=== PATIENT | female | born 1965 | race Caucasian/White ===

== ENCOUNTER 2019-08-15 23:10 | Emergency (ER) | payer SELFPAY ==
--- NOTE | ~2019-08-15 | CT_ITS ---
EXAMINATION: CT brain wo con EXAM DATE: 08/15/2019 23:37 INDICATION: Right-sided hemiparesis and paresthesia. Irregular heartbeat. Right-sided lung cancer. TECHNIQUE: Spiral CT of the head was performed without contrast. Axial, coronal and sagittal images were reviewed. The dose-length product (DLP) for this examination was 605.33 mGy-cm. The exposure w as tailored according to patient size, and iterative reconstruction (ASIR) was used as additional dos e reduction technique. Comparison is made to prior examination from 06/13/2011. FINDINGS: Interval development of a left frontal lobe mass most likely metastatic lesion measuring 2. 8 x 2.1 cm, extensive associated vasogenic edema. There is some mass effect on the left lateral ventr icle with 6 mm of contralateral midline shift. There is there is also a left parietal lobe lesion measuring 1.5 cm. No evidence of acute infarction or intracranial hemorrhage. There are no extra-axial collections. The posterior fossa is unremarkable . Orbits and soft tissues are unremarkable. The visualized portions of the sinuses and mastoid air ce lls are well aerated. IMPRESSION: 1. Left frontal lobe and left parietal lobe masses most likely metastatic lesions. 2. Associated vasogenic edema and mild subfalcine herniation. 3. No acute intracranial findings. Reviewed, dictated and finalized at location . IMPRESSION: 1. Left frontal lobe and left parietal lobe masses most likely metastatic lesi ons. 2. Associated vasogenic edema and mild subfalcine herniation. 3. No acute intracranial findings.
[2019-08-15 23:10] VITALS: PULSE 125
[2019-08-15 23:15] VITALS: BP 121/83; PULSE 125; RESP 20; TEMP 37.3; O2SAT 99
--- NOTE | 2019-08-15 23:23 | ED.GENADULT ---
HPI - General Adult General Chief complaint: Suspected CVA Stated complaint: stroke History of Present Illness HPI narrative: Carmen is a 53F with a PMH hx of breast cancer, fast irregular heartbeat (unsure of the name) presented to the ED with concerns of a stroke. Symptoms started yesterday morning (unsure of exactly what time) but best guess is about 29 hours. She has had weakness in her right arm, right leg, and has had trouble finding her words. She has reportedly had trouble finding her words for a week. Related Data Home Medications Medication Instructions Recorded Confirmed alprazolam [Xanax] 0.5 mg PO BID PRN 08/15/19 08/15/19 buspirone 30 mg PO DAILY 08/15/19 08/15/19 metoprolol tartrate 50 mg PO DAILY 08/15/19 08/15/19 paroxetine HCl [Paxil] 40 mg PO QAM 08/15/19 08/15/19 trazodone 100 mg PO HS PRN 08/15/19 08/15/19 Allergies Allergy/AdvReac Type Severity Reaction Status Date / Time No Known Allergies Allergy Verified 08/15/19 23:46 Review of Systems Constitutional: Constitutional: Denies chills, Denies fever(s) and Reports weakness Eyes: Eyes: Reports no additional eye complaints ENT: Reports system reviewed and no additional complaints, except as documented Cardiovascular: Cardiovascular: Denies chest pain and Reports rapid heart rate Respiratory: Respiratory: Reports no additional respiratory complaints Comments: cough is no different than baseline Gastrointestinal: Gastrointestinal: Reports no additional gastrointestinal complaints Musculoskeletal: Musculoskeletal: Reports no additional musculoskeletal complaints Neurologic: Reports as per HPI Psychiatric: Psychiatric: Reports anxiety Endocrine: Endocrine: Reports no additional endocrine complaints Hematologic/Lymphatic: Hematologic/Lymphatic: Reports no additional hematologic/lymphatic complaints Allergic/Immunologic: Allergic/Immunologic: Reports no additional allergic/immunologic complaints [facility] Social History Social History Gender identity (if verbalized by the patient): Female Exam Const: General: no acute distress and alert Nutritional Appearance: well nourished Orientation/consciousness: patient oriented x3 Limitations: No altered mental status HENMT: Other: Normocephalic, atraumatic, no facial droop, moist oropharynx Eyes: Conjunctivae: conjunctivae normal Pupils: Equal, round and reactive pupils present Neck: Neck: normal visual inspection Resp: Effort & Inspection: normal respiratory effort Auscultation: clear to auscultation bilaterally Other: Absent breath sounds on the upper right Cardio: Rate: tachycardic Rhythm: regular rhythm Heart sounds: no murmurs GI: Inspection: non-distended GI Palp: Yes Soft to palpation and No Tenderness to palpation present (GI) Skin: General skin exam: normal color Rashes: no rashes Neuro: General: patient oriented x3 Other: alert orient x3, cranial nerves 2-12 intact as tested - could not see in the upper right quadrant of vision - 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 A CT was ordered. as well as labs. CT was completed and showed potential metastatic lesions, edema, and midline shift. After speaking with the patient she had originally wanted transfer for a higher level of care. While working on transfer to [place] she changed her mind. After her sister left the room she stated that she wanted to go home. She was aware that this could cause pain suffering and . She signed AMA paperwork. She did not stay for the EKG or to go over her lab work. She w
[2019-08-15 23:31] LABS: Basophils Absolute Auto 0.03 K/mm3 (0.00-0.10); Basophils Percent Auto 0.5 % (0.0-1.0); Eosinophils Absolute Auto 0.02 K/mm3 (0.02-0.50); Eosinophils Percent Auto 0.4 % (1.0-6.0); Hematocrit 40.7 % (35.0-49.0); Hemoglobin 13.7 g/dL (12.0-15.0); Immature Granulocyte Absolute 0.01 K/mm3 (0.00-0.00); Immature Granulocyte Percent A 0.2 % (0.0-0.0); Lymphocytes Absolute Auto 1.48 K/mm3 (1.10-4.50); Lymphocytes Percent Auto 27.1 % (18.0-42.0); Mean Corpuscular HGB Conc 33.7 g/dL (32.0-36.0); Mean Corpuscular Hemoglobin 31.5 pg (27.0-31.0); Mean Corpuscular Volume 93.6 fL (78.0-102.0); Monocytes Absolute Auto 0.54 K/mm3 (0.10-0.90); Monocytes Percent Auto 9.9 % (2.0-11.0); Neutrophils Absolute Auto 3.4 K/mm3 (1.7-7.2); Neutrophils Percent Auto 61.9 % (50.0-70.0); Platelet Count Result 261 K/mm3 (150-420); Red Blood Count 4.35 M/mm3 (4.20-5.40); Red Cell Distribution Width 11.8 % (11.6-14.4); White Blood Count 5.5 K/mm3 (4.8-10.8)
[2019-08-15 23:39] VITALS: BP 131/49; PULSE 118; RESP 20; O2SAT 96
[2019-08-15 23:44] LABS: Partial Thromboplastin Time 24.6 SEC (22.3-31.6); Prothrombin Time 10.2 Seconds (9.64-11.0)
[2019-08-15 23:47] LABS: Anion Gap 15.3 mmol/L (7-16); Blood Urea Nitrogen 21 mg/dL (7-18); Calcium 9.4 mg/dL (8.5-10.1); Carbon Dioxide 27 mmol/L (21-32); Chloride 105 mmol/L (98-108); Estimated CRCL calculation 66 ml/min; Estimated Glomerular Filt Rate > 60; Glucose 113 mg/dL (70-99); Osmolality Calculated 302 mOsm/kg (285-295); Potassium 3.3 mmol/L (3.5-5.1); Sodium 144 mmol/L (136-145)
[2019-08-15 23:50] LABS: Troponin I < 0.02 ng/mL (0.00-0.056)
--- NOTE | 2019-08-15 23:52 | PC.NURSE ---
Dr Subramanian at bedside talking with pt re: ct scan report.
[2019-08-15 23:54] VITALS: BP 131/49; PULSE 120; RESP 18; O2SAT 97
--- NOTE | 2019-08-16 00:01 | PC.NURSE ---
Report to JUAN Meyer. Care transferred at this time.
--- NOTE | 2019-08-16 00:06 | PC.NURSE ---
[facility] line called at this time for Dr Subramanian to speak with neurosurgery.
[2019-08-16] MEDS: LORAZEPAM INJ 2 MG/ML VIAL 0.25 MG IV PUSH (00:21)
== END 2019-08-16 00:20 | disposition left against medical advice (07) ==
PROVIDERS: Emergency Provider Family Medicine
DX: G93.9 Disorder of brain, unspecified (principal); G93.6 Cerebral edema
CPT/HCPCS: 36415; 70450; 80048; 82948; 84484; 85025; 85610; 85730; 96374; 99283; 99284; J2060

== ENCOUNTER 2019-09-04 15:41 | Emergency (ER) | payer MEDICAID, SELFPAY ==
--- NOTE | 2019-09-04 15:51 | ED.NEUROSD ---
HPI - Neuro Symptoms/Deficit General Chief Complaint: Altered Mental Status Stated Complaint: amb Time Seen by Provider: 09/04/19 15:55 Source: patient, EMS and RN notes reviewed Mode of arrival: EMS Limitations: no limitations History of Present Illness Onset (ago): minute(s) (30) Timing confirmed by: family member Location: speech and right arm History of same: Yes Severity: mild Quality: weak and improving Relieving factors: time Context: sudden onset On Anticoagulants: No Associated symptoms: denies other symptoms Treatments Prior to Arrival: none Related Data Home Medications Medication Instructions Recorded Confirmed alprazolam [Xanax] 0.5 mg PO BID PRN 08/15/19 08/15/19 buspirone 30 mg PO DAILY 08/15/19 08/15/19 metoprolol tartrate 50 mg PO DAILY 08/15/19 08/15/19 paroxetine HCl [Paxil] 40 mg PO QAM 08/15/19 08/15/19 trazodone 100 mg PO HS PRN 08/15/19 08/15/19 Allergies Allergy/AdvReac Type Severity Reaction Status Date / Time No Known Allergies Allergy Verified 08/15/19 23:46 Review of Systems Review of Systems: All systems reviewed & are unremarkable except as noted in HPI and below Cardiovascular: Cardiovascular: Denies chest pain and Denies rapid heart rate Respiratory: Respiratory: Reports no additional respiratory complaints Gastrointestinal: Gastrointestinal: Reports no additional gastrointestinal complaints Musculoskeletal: Musculoskeletal: Reports as per HPI Neurologic: Reports as per HPI Psychiatric: Psychiatric: Reports no additional psychiatric complaints Endocrine: Endocrine: Reports no additional endocrine complaints [facility] Past Medical History Medical History (Updated 09/04/19 @ 18:09 by Jorge Pastor MD) Depression History of completed stroke Lung cancer metastatic to brain Surgical History Surgical History (Updated 09/04/19 @ 18:09 by Jorge Pastor MD) History of lobectomy of lung Social History Social History Gender identity (if verbalized by the patient): Female Exam Const: General: healthy appearing, no acute distress and alert Nutritional Appearance: well nourished Orientation/consciousness: patient oriented x3 HENMT: Head: normal to inspection General nose exam: Normal external nose present Face and sinus: normal facial exam Mouth: Yes lip normal and Yes moist mucous membranes Eyes: Conjunctivae: conjunctivae normal Pupils: Equal, round and reactive pupils present EOM: EOMs intact bilaterally Neck: Neck: normal visual inspection and no lymphadenopathy Resp: Effort & Inspection: normal respiratory effort Auscultation: clear to auscultation bilaterally Cardio: Rate: regular rate Rhythm: regular rhythm Heart sounds: no murmurs GI: GI Palp: Yes Soft to palpation and No Tenderness to palpation present (GI) Auscultation: normal bowel sounds Back/Spine/Pelvis: Cervical Spine: cervical ROM abnormal Thoracic/Lumbar Spine: thoraco-lumbar ROM normal Neuro: General: patient oriented x3 and moves all extremities Speech: normal speech Gait exam (Neuro): Normal gait present Extrem: General: normal to inspection Psych: Appearance: grossly normal and well kempt Mental Status: mental status grossly normal Affect: normal affect Attitude: cooperative Thought content: Yes Normal thought content present Course Course Emergency Course: I discussed with the patient whether or not she wanted any kind of workup done. She declined. She says that this was a worsening of her brain cancer that she is aware of. She is decided that she does not want any treatment and she does not want any intervention. She relates that she was able to understand everything people around her were sane but she was not able to get out her words which is similar to previous episodes she has had in the past. She admitted that she had some more right-sided weakness but that is completely resolved. I discussed with her do
[2019-09-04 16:01] VITALS: BP 134/96; PULSE 80; RESP 16; TEMP 35.8; O2SAT 97
[2019-09-04 16:18] VITALS: RESP 15; O2SAT 99
== END 2019-09-04 16:19 | disposition left against medical advice (07) ==
PROVIDERS: Emergency Provider Emergency Medicine
DX: G45.9 Transient cerebral ischemic attack, unspecified (principal)
CPT/HCPCS: 99283

== ENCOUNTER 2019-09-14 16:01 | Emergency (ER) | payer MEDICAID, SELFPAY ==
[2019-09-14] VITALS (11 sets, daily range): BP systolic 97–133; BP diastolic 65–82; PULSE 59–71; RESP 10–16; TEMP 36.5; O2SAT 95–98
--- NOTE | ~2019-09-14 | CT_ITS ---
EXAMINATION: CT brain wo con DATE: 09/14/2019 16:51 INDICATION: Confusion. Brain metastases. Intermittently combative to unresponsive. TECHNIQUE: Computed tomography (CT) of the head was performed without intravenous contrast. The dose- length product was 605.33 mGy-cm. Automated exposure control and iterative reconstruction technique w ere employed. COMPARISON: CT dated 08/15/2019 FINDINGS: There are persistent masses in the left frontal and parietal lobes with large amount of vas ogenic edema in the left hemisphere. There is rightward midline shift consistent with herniation. The left occipital horn is effaced. The posterior fossa is unremarkable. There is mass effect on the lef t lateral ventricle. Paranasal sinuses and mastoids are pneumatized. Left frontal lobe mass measures approximately 2.7 x 2.5 cm, slightly increased in size compared with prior examination. Left parietal mass measures 1.9 cm, also likely slightly increased in size. No acute intracranial hemorrhage is id entified. IMPRESSION: 1. Increased size of left frontal and parietal lobe masses with surrounding vasogenic edema causing s ignificant mass effect with [id number] midline shift and effacement of the left lateral ventricle. Reviewed, dictated and finalized at location A. IMPRESSION: 1. Increased size of left frontal and parietal lobe masses with surrounding vas ogenic edema causing significant mass effect with [id number] midline shift a nd effacement of the left lateral ventricle.
--- NOTE | ~2019-09-14 | XR_ITS ---
XR chest 1V portable 09/14/2019 16:50 Indication: Transient altered awareness. Lung cancer. Brain metastases. Procedure: AP portable chest Comparison: 05/12/2012 Findings: There are surgical changes consistent with partial right pneumonectomy. There is focal cons olidation in the right midlung which may represent atelectasis, scarring or pneumonia. No pleural eff usion or pneumothorax. Elevated right diaphragm, consistent with volume loss. No acute osseous abnorm ality. Heart size normal. Mildly prominent right hilum. Cannot exclude lymphadenopathy. Impression: 1: Focal airspace disease right mid and lower lung, differential diagnosis includes atelectasis/scarr ing and pneumonia. 2: Prominent right hilum may relate to previous pneumonectomy, although lymphadenopathy not excluded. Reviewed, dictated and finalized at location A. Impression: 1: Focal airspace disease right mid and lower lung, differential diagnosis incl udes atelectasis/scarring and pneumonia. 2: Prominent right hilum may relate to previous pneumonectomy, although lymphad enopathy not excluded.
--- NOTE | 2019-09-14 16:15 | ECG_ITS ---
Measurements Intervals [place] Rate: 54 P: 46 MA: 148 QRS: 40 QRSD: 106 T: 58 QT: 412 QTc: 392 Interpretive Statements SINUS BRADYCARDIA BASELINE WANDER- I, AVL BORDERLINE ECG Electronically Signed On 09-15-2019 7:25:34 CDT by Cesar Downs D.O.
[2019-09-14 16:20] LABS: Glucose Point of Care 140 (65-105)
[2019-09-14] MEDS: SODIUM CHLORIDE 0.9% IV 1,000 ML 999 ML IV CONT (16:47)
[2019-09-14 17:03] LABS: Base Excess ABG -2.3 mmol/L (0-2); HCO3 ABG 23.2 mmol/L (23-29); Oxygen Content ABG 14.7 %vol (16.0-22.0); Oxygen Saturation ABG 92.6 % (95-97); Oxyhemoglobin 90.3 % (94-100); PCO2 ABG 42.6 mmHg (35-45); PO2 ABG 71.8 mmHg (80-90); Total Hemoglobin 11.5 g/dL; pH ABG 7.35 (7.35-7.45)
[2019-09-14 17:04] LABS: Basophils Absolute Auto 0.02 K/mm3 (0.00-0.10); Basophils Percent Auto 0.1 % (0.0-1.0); Device ROOM AIR; Hematocrit 34.9 % (35.0-49.0); Immature Granulocyte Absolute 0.25 K/mm3 (0.00-0.00); Immature Granulocyte Percent A 1.5 % (0.0-0.0); Lymphocytes Absolute Auto 0.73 K/mm3 (1.10-4.50); Lymphocytes Percent Auto 4.3 % (18.0-42.0); Mean Corpuscular HGB Conc 34.4 g/dL (32.0-36.0); Mean Corpuscular Hemoglobin 31.7 pg (27.0-31.0); Mean Corpuscular Volume 92.1 fL (78.0-102.0); Mean Platelet Volume 9.6 fl (9.2-11.8); Modified Allen's Test Pass; Monocytes Absolute Auto 1.06 K/mm3 (0.10-0.90); Monocytes Percent Auto 6.3 % (2.0-11.0); Neutrophils Absolute Auto 14.8 K/mm3 (1.7-7.2); Neutrophils Percent Auto 87.8 % (50.0-70.0); Platelet Count Result 236 K/mm3 (150-420); Red Blood Count 3.79 M/mm3 (4.20-5.40); Red Cell Distribution Width 12.5 % (11.6-14.4); Site Drawn LEFT RADIAL; White Blood Count 16.9 K/mm3 (4.8-10.8)
--- NOTE | 2019-09-14 17:05 | ED.AMS ---
HPI - Altered Mental Status General Chief Complaint: Altered Mental Status Stated Complaint: ambulance Time Seen by Provider: 09/14/19 16:15 Source: family Mode of arrival: EMS Limitations: altered mental status History of Present Illness HPI narrative: 53-year-old woman with a history of lung cancer and lobectomy brought to the emergency department by EMS for altered mental status and possible stroke. Family called EMS when they noted that she was more tired than usual for the last day or so and then was unarousable within the last hour. Other than taking 0.5 mg of Xanax she is taking no new medications, new treatments, and had no falls or injuries that they know of. Patient has metastases to the brain which are causing a partial herniation and a midline shift. they deny any vomiting, fever, cough or cold symptoms, except to say that the increased her oxygen a little bit yesterday, she seemed short of breath. Patient was in this emergency department on August 14 and September 03 for neurologic deficits and altered mental status. Both visits she refused further testing and treatment and left. According to the family she is still deciding whether not she wants to do any further therapies for her cancer. She sees Dr. Santi Armando at [facility] oncology, Dr. Vincent for pulmonology and her primary care doctor is Fifi Epstein MD. complaint: altered mental status Onset (ago): hour(s) (2) Timing confirmed by: family member Severity: similar to previous episodes Consistency of symptoms: getting Worse Associated symptoms: cough and shortness of breath Treatments prior to arrival: IV fluid and oxygen Related Data Home Medications Medication Instructions Recorded Confirmed alprazolam [Xanax] 0.5 mg PO BID PRN 08/15/19 09/14/19 buspirone 30 mg PO DAILY 08/15/19 09/14/19 paroxetine HCl [Paxil] 40 mg PO QAM 08/15/19 09/14/19 trazodone 100 mg PO HS PRN 08/15/19 09/14/19 dexamethasone 4 mg PO DAILY 09/14/19 09/14/19 metoprolol succinate 50 mg PO DAILY 09/14/19 09/14/19 Allergies Allergy/AdvReac Type Severity Reaction Status Date / Time No Known Allergies Allergy Verified 08/15/19 23:46 Review of Systems Review of Systems: ROS unobtainable: Yes unobtainable due to mental status PMF[facility] Past Medical History Medical History Depression History of completed stroke Lung cancer metastatic to brain Surgical History Surgical History History of lobectomy of lung Social History Social History Gender identity (if verbalized by the patient): Female Exam Const: General: no acute distress Other: On initial exam, withdraws right hand from pain, and attempts to open her eyes with command. No other response. HENMT: Ears: external ears normal, TM's normal bilaterally and EAC's normal Mouth: Yes Normal oral and palatal mucosa present and Yes moist mucous membranes Throat: posterior oropharynx normal and uvula midline Eyes: Conjunctivae: conjunctivae normal Pupils: Equal, round and reactive pupils present EOM: EOMs intact bilaterally Resp: Effort & Inspection: normal respiratory effort and not labored Auscultation: clear to auscultation bilaterally, no rales, no rhonchi and no wheezes Cardio: Rate: regular rate Rhythm: regular rhythm Heart sounds: no murmurs GI: GI Palp: Yes Soft to palpation, No Tenderness to palpation present (GI), No Guarding due to palpation present (GI), No Rigid due to palpation and No Palpable mass present Skin: General skin exam: normal color, no jaundice and no pallor Rashes: no rashes Psych: Appearance: grossly normal and well kempt Thought content: Yes Normal thought content present Course Course Emergency Course: Patient had limited responses to voice but stated that she was amenable to transfer to [facility]. Have discusse
[2019-09-14 17:14] LABS: Partial Thromboplastin Time 20.5 SEC (22.3-31.6); Prothrombin Time 9.9 Seconds (9.64-11.0)
[2019-09-14 17:23] LABS: Lactic Acid Reflex 1.7 mmol/L (0.4-2.0)
[2019-09-14 17:25] LABS: Acetaminophen 1 ug/mL (10-30); Alanine Aminotransferase 45 U/L (14-59); Albumin Level 3.6 g/dL (3.4-5.0); Alkaline Phosphatase 63 U/L (46-116); Ammonia 16 umol/L (11-32); Aspartate Amino Transferase 17 U/L (15-37); Bilirubin,Total 0.2 mg/dL (0.00-1.00); Blood Urea Nitrogen 41 mg/dL (7-18); Calcium 8.7 mg/dL (8.5-10.1); Carbon Dioxide 26 mmol/L (21-32); Chloride 100 mmol/L (98-108); Creatine Kinase 114 U/L (26-192); Estimated Glomerular Filt Rate > 60; Ethanol < 3 mg/dL (0-6); Glucose 144 mg/dL (70-99); Osmolality Calculated 297 mOsm/kg (285-295); Salicylate 1.7 mg/dL (2.8-20.0); Sodium 137 mmol/L (136-145); Thyroid Stimulating Hormone 0.22 uIU/mL (0.36-3.74); Total Protein 6.5 g/dL (6.4-8.2); Troponin I < 0.02 ng/mL (0.00-0.056)
[2019-09-14 17:30] LABS: Add Urine Microscopic? YES; Appearance Urine Clear (Clear); Bilirubin Urine Negative (Negative); Blood Urine 1+ (Negative); Color Urine Yellow (Yellow); Glucose Urine UA Negative (Negative); Ketones Urine Negative (Negative); Leukocyte Esterase Ur Negative LEU/UL (Negative); Nitrate Urine Negative (Negative); Protein Urine Negative (Negative); Specific Grav Ur <= 1.005 (1.010-1.020); Urobilinogen Urine 0.2 mg/dL (0.2-1.0)
[2019-09-14 17:36] LABS: Bacteria Urine Trace /hpf; RBC Urine 0-2 /hpf (0-2); Squamous Epithelial Cell Urine Rare /hpf (Few); WBC Urine 0-3 /hpf (0-3)
[2019-09-14 17:37] LABS: Amphetamine Screen Urine Positive (Negative); Barbiturate Screen Urine Negative (Negative); Benzodiazepines Screen Urine Negative (Negative); Cannabinoid Screen Urine Negative (Negative); Cocaine Screen Urine Positive (Negative); Methadone Screen Urine Negative (Negative); Opiate Screen Urine Positive (Negative); Phencyclidine Screen Urine Negative (Negative)
[2019-09-14] MEDS: DEXAMETHASONE SOD PHOS INJ 4 MG/ML VIAL 10 MG IV PUSH (19:03)
== END 2019-09-14 20:11 | disposition short-term general hospital (02) ==
PROVIDERS: Emergency Provider Emergency Medicine
DX: R41.82 Altered mental status, unspecified (principal); C34.90 Malignant neoplasm of unspecified part of unspecified bronchus or lung; C79.31 Secondary malignant neoplasm of brain; Z86.73 Personal history of transient ischemic attack (TIA), and cerebral infarction without residual deficits
CPT/HCPCS: 36415; 36600; 70450; 71045; 80053; 80307; 81001; 82140; 82550; 82805; 83605; 84443; 84484; 85025; 85610; 85730; 87040; 87086; 93005; 96361; 96374; 99285; J1100; J7030

== ENCOUNTER 2020-09-12 11:27 | Emergency (ER) | payer BC, SELFPAY ==
[2020-09-12 11:35] VITALS: BP 114/80; PULSE 104; RESP 16; TEMP 36.9; O2SAT 99
--- NOTE | 2020-09-12 11:40 | PC.NURSE ---
Pt family member at bedside and describes episode as patient looked dazed and then she was lowered to the ground by her family member and they sat on the ground and hugged. family member became concerned and called 911.
[2020-09-12 12:27] VITALS: BP 122/84; PULSE 108; O2SAT 99
--- NOTE | 2020-09-12 12:35 | ED.SEIZURE ---
HPI - Seizure General Chief Complaint: Seizure Stated Complaint: ambualnce Time Seen by Provider: 09/12/20 11:50 Source: patient Mode of arrival: ambulatory Limitations: no limitations History of Present Illness HPI Narrative: Patient comes in after having a spell at home. She had some preliminary jerking, while she was walking, and quickly sat down. Then she evidently had a tonic clonic seizure. it sounds like this was very brief, less than a minute, and it sounds like she came around pretty quickly. I get the further history that this woman has a history of non small cell lung cancer which has metastasized to the brain. She has reportedly been given chemotherapy and radiation for this tumor, and is now done with these. She evidently has not seen the oncologist in some time, as she state she wants nothing further done. Certainly she has the privilege to direct her care. She had no injury with this seizure. Nothing made the seizure better or worse. Context: Malignancy. complaint: seizure Onset (ago): minute(s) Description of Episode: loss of consciousness and tonic-clonic movement -: second(s) (60) Witnessed: Yes - by Bystander Trauma: No Seizure History: Yes Place: home Possible Precipitating Event: none Associated symptoms: denies other symptoms Treatments prior to arrival: benzodiazepines Related Data Allergies Allergy/AdvReac Type Severity Reaction Status Date / Time No Known Allergies Allergy Verified 09/12/20 15:23 Review of Systems Constitutional: Constitutional: Reports no additional constitutional complaints Comments: no focal weakness Eyes: Eyes: Reports no additional eye complaints ENT: Reports system reviewed and no additional complaints, except as documented Cardiovascular: Cardiovascular: Reports no additional cardiovascular complaints Respiratory: Respiratory: Reports no additional respiratory complaints Gastrointestinal: Gastrointestinal: Reports no additional gastrointestinal complaints Genitourinary: Genitourinary: Reports no additional female genitourinary complaints Musculoskeletal: Musculoskeletal: Reports no additional musculoskeletal complaints Integumentary/Breasts: Skin/Breast: Reports system reviewed and no additional complaints, except as docu Neurologic: Comments: no other complaints Psychiatric: Psychiatric: Reports no additional psychiatric complaints Endocrine: Endocrine: Reports no additional endocrine complaints Hematologic/Lymphatic: Hematologic/Lymphatic: Reports no additional hematologic/lymphatic complaints Allergic/Immunologic: Allergic/Immunologic: Reports no additional allergic/immunologic complaints [facility] Past Medical History Medical History Depression History of completed stroke Lung cancer metastatic to brain Surgical History Surgical History History of lobectomy of lung Family History Family History (Updated 09/12/20 @ 16:29 by Jorge Sahu MD) Mother Family history non-contributory Social History Social History Smoking status: Current every day smoker Gender identity (if verbalized by the patient): Female Exam Const: General: no acute distress Orientation/consciousness: patient oriented x3 Limitations: no limitations HENMT: Head: normal to inspection Ears: external ears normal and TM's normal bilaterally Face and sinus: normal facial exam Mouth: Yes Normal oral and palatal mucosa present Throat: posterior oropharynx normal Eyes: Conjunctivae: conjunctivae normal EOM: EOMs intact bilaterally Neck: Neck: normal visual inspection Chest: Chest palpation & inspection: normal inspection of the chest Resp: Effort & Inspection: normal respiratory effort Auscultation: clear to auscultation bilaterally Cardio: Rate: regular rate Rhythm: regular rhythm GI: GI Palp: Yes Soft t
== END 2020-09-12 12:44 | disposition home or self-care (01) ==
PROVIDERS: Emergency Provider Emergency Medicine
DX: C34.90 Malignant neoplasm of unspecified part of unspecified bronchus or lung (principal); C79.31 Secondary malignant neoplasm of brain
CPT/HCPCS: 99283

== ENCOUNTER 2020-12-22 23:32 | Emergency (ER) | payer BC, SELFPAY ==
--- NOTE | ~2020-12-22 | XR_ITS ---
EXAMINATION: XR chest 1V portable DATE: 12/22/2020 23:56 INDICATION: Seizure. Altered mental status. TECHNIQUE: frontal view of the chest was obtained. COMPARISON: Chest radiograph dated 09/14/2019 FINDINGS: Right internal jugular central venous port catheter with distal tip at the superior cavoatrial juncti on. Volume loss in the right hemithorax with rightward shift of the normal sized heart and mediastinu m. Suture line in the right suprahilar region consistent with prior partial pneumonectomy. Enlargemen t of the right hilum raising concern for progression of reported lung cancer or metastatic hilar lymp hadenopathy. No other airspace opacities, pulmonary edema, pleural effusion or pneumothorax. IMPRESSION: 1. Increased prominence of the right hilum raising concern for progression of reported lung cancer or associated metastatic hilar lymphadenopathy. 2. Postoperative changes consistent with prior partial right pneumonectomy. Reviewed, dictated and finalized at location A. IMPRESSION: 1. Increased prominence of the right hilum raising concern for progression of r eported lung cancer or associated metastatic hilar lymphadenopathy. 2. Postoperative changes consistent with prior partial right pneumonectomy.
--- NOTE | ~2020-12-22 | CT_ITS ---
EXAMINATION: CT brain wo con DATE: 12/22/2020 23:53 INDICATION: Seizure, confusion, memory loss and lack of coordination TECHNIQUE: Computed tomography (CT) of the head was performed without intravenous contrast. Sagittal and coronal reconstructions were performed. The mA was adjusted according to patient size. Iterative reconstruction technique was employed. The dose-length product was 605.33 mGy-cm. COMPARISON: head CT dated 09/14/2019 FINDINGS: There is an acute intraparenchymal hemorrhage in the left frontal lobe measuring approximately 11 x 1 0 x 8 mm in the region of a previous 2.9 cm peripherally hyperdense, centrally hypodense intraparench ymal mass consistent with given history of metastatic disease. The mass is not identified at this loc ation on the current study although there are a few new small dystrophic calcifications suggesting in terval treatment. A second previously 2.0 cm similar appearing mass in the left parietal lobe has dec reased in size to 1.1 cm and likely reflecting interval treatment. There has however been interval de velopment of a new approximately 2.2 cm mass at the left occipital lobe. There is extensive vasogenic edema throughout the left cerebral hemisphere with increasing left right midline shift currently grayson suring approximately 1.4 cm at the level of the ventricular septum. There is effacement of the left-s ided sulci and occipital horn of the left lateral ventricle as well as mild left uncal herniation. No acute infarction or abnormal extra axial fluid collection. The orbits and mastoid air cells are norm al. There is near complete opacification of the left sphenoid sinus with additional prominent mucosal thickening in the left maxillary sinus and opacification of one of the anterior left ethmoid air cl ls. IMPRESSION: 1. 11 x 10 x 8 mm region of intraparenchymal hemorrhage in the left frontal lobe near the site of a p rior likely metastatic mass which is significantly decreased in size since the prior study along with a second pass the left parietal lobe consistent with interval response to treatment. 2. New 2.2 cm mass in the left occipital lobe consistent with progression of metastatic disease. 3. Extensive vasogenic edema throughout much of the left cerebral hemisphere resulting in both subfal cine and left uncal herniation. 4. Dr. Randhawa discussed these findings with Dr. Ortiz at 12:10 AM. Reviewed, dictated and finalized at location A. IMPRESSION: 1. 11 x 10 x 8 mm region of intraparenchymal hemorrhage in the left frontal lob e near the site of a prior likely metastatic mass which is significantly decrea sed in size since the prior study along with a second pass the left parietal lo be consistent with interval response to treatment. 2. New 2.2 cm mass in the left occipital lobe consistent with progression of me tastatic disease. 3. Extensive vasogenic edema throughout much of the left cerebral hemisphere re sulting in both subfalcine and left uncal herniation. 4. Dr. Randhawa discussed these findings with Dr. Ortiz at 12:10 AM.
[2020-12-22 23:35] VITALS: BP 110/73; PULSE 100; RESP 18; TEMP 36.6; O2SAT 95
--- NOTE | 2020-12-22 23:38 | ED.SEIZURE ---
HPI - Seizure General Chief Complaint: Seizure <Jigar Ortiz MD - Last Filed: 12/23/20 07:27> Stated Complaint: Altered mental status <Jigar Ortiz MD - Last Filed: 12/23/20:> Time Seen by Provider: 12/22/20 23:38 <Jigar Ortiz MD - Last Filed: 12/23/20:27> Source: EMS <Jigar Ortiz MD - Last Filed: 12/23/20:> Mode of arrival: EMS <Jigar Ortiz MD - Last Filed: 12/23/20:> Limitations: language barrier <Jigar Ortiz MD - Last Filed: 12/23/20:> History of Present Illness HPI Narrative: 54-year-old woman with a history of small cell lung cancer with metastases to the brain and seizures brought to the emergency department by EMS after she had 4 previous seizures at home. EMS stated that she had 2 minutes seizure while they were there. She has been unable to vocalize anything except yes or no and was briefly combative with them. She is now calm. Her sister states that she was on dexamethasone and Ativan for control of her symptoms but she ran out of those medications recently. Patient has had right-sided weakness for some time but seems to be worse today. The aphasia is also new. <Jigar Ortiz MD - Last Filed: 12/23/20:27> MD complaint: seizure <Jigar Ortiz MD - Last Filed: 12/23/20:27> Onset (ago): hour(s) <Jigar Ortiz MD - Last Filed: 12/23/20:27> Description of Episode: loss of consciousness and tonic-clonic movement <Jigar Ortiz MD - Last Filed: 12/23/20:27> Duration of episode: 2 <Jigar Ortiz MD - Last Filed: 12/23/20:27> -: minutes(s) <Jigar Ortiz MD - Last Filed: 12/23/20:27> Witnessed: Yes - by Bystander <Jigar Ortiz MD - Last Filed: 12/23/20:27> Trauma: No <Jigar Ortiz MD - Last Filed: 12/23/20 07:27> Seizure History: Yes <Jigar Ortiz MD - Last Filed: 12/23/20 07:27> Place: home <Jigar Ortiz MD - Last Filed: 12/23/20 07:27> Possible Precipitating Event: other (Brain metastases) <Jigar Ortiz MD - Last Filed: 12/23/20 07:27> Treatments prior to arrival: none <Jigar Ortiz MD - Last Filed: 12/23/20 07:27> Related Data Allergies/Adverse Reactions: Allergies Allergy/AdvReac Type Severity Reaction Status Date / Time No Known Allergies Allergy Verified 09/12/20 15:23 <Jigar Ortiz MD - Last Filed: 12/23/20 07:27> Review of Systems Review of Systems: ROS unobtainable: Yes unobtainable due to mental status <Jigar Ortiz MD - Last Filed: 12/23/20 07:27> [facility] Past Medical History Medical History: Medical History (Updated 12/23/20 @ 15:43 by Aguila Grant MD) Depression 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 History of completed stroke Lung cancer metastatic to brain <Jigar Ortiz MD - Last Filed: 12/23/20 07:27> Surgical History Surgical History: Surgical History History of lobectomy of lung <Jigar Ortiz MD - Last Filed: 12/23/20 07:27> Family History Family History: Family History (Updated 09/12/20 @ 16:29 by Jorge Sahu MD) Mother Family history non-contributory <Jigar Ortiz MD - Last Filed: 12/23/20 07:27> Social History Social History: Social History Smoking status: Current every day smoker Gender identity (if verbalized by the patient): Female <Jigar Ortiz MD - Last Filed: 12/23/20 07:27> Exam Const: General: no acute distress and alert <Jigar Ortiz MD - Last Filed: 12/23/20 07:27> Other: Aphasic <Jigar Ortiz MD - Last Filed: 12/23/20 07:27> HENMT: Throat: posterior oropharynx normal <Jigar Ortiz MD - Last Filed: 12/23/20 07:27> Resp: Effort & Inspection: normal respiratory effort and not labored <Jigar
[2020-12-23] VITALS (73 sets, daily range): BP systolic 101–130; BP diastolic 70–95; PULSE 92–118; RESP 13–25; O2SAT 90–100
[2020-12-23 00:14] LABS: Basophils Absolute Auto 0.05 K/mm3 (0.00-0.10); Basophils Percent Auto 0.7 % (0.0-1.0); Eosinophils Absolute Auto 0.03 K/mm3 (0.02-0.50); Eosinophils Percent Auto 0.4 % (1.0-6.0); Hematocrit 32.8 % (35.0-49.0); Hemoglobin 10.7 g/dL (12.0-15.0); Immature Granulocyte Absolute 0.11 K/mm3 (0.00-0.00); Immature Granulocyte Percent A 1.5 % (0.0-0.0); Lymphocytes Absolute Auto 0.79 K/mm3 (1.10-4.50); Lymphocytes Percent Auto 10.5 % (18.0-42.0); Mean Corpuscular HGB Conc 32.6 g/dL (32.0-36.0); Mean Corpuscular Hemoglobin 30.6 pg (27.0-31.0); Mean Corpuscular Volume 93.7 fL (78.0-102.0); Mean Platelet Volume 9.6 fl (9.2-11.8); Monocytes Absolute Auto 0.95 K/mm3 (0.10-0.90); Monocytes Percent Auto 12.6 % (2.0-11.0); Neutrophils Absolute Auto 5.6 K/mm3 (1.7-7.2); Neutrophils Percent Auto 74.3 % (50.0-70.0); Platelet Count Result 248 K/mm3 (150-420); Red Cell Distribution Width 13.2 % (11.6-14.4); White Blood Count 7.5 K/mm3 (4.8-10.8)
[2020-12-23] MEDS: THIAMINE HCL 200 MG/2 ML VIAL 100 MG IV PUSH (00:15)
[2020-12-23 00:32] LABS: Alanine Aminotransferase 26 U/L (14-59); Albumin Level 2.8 g/dL (3.4-5.0); Alkaline Phosphatase 86 U/L (46-116); Anion Gap 12 mmol/L (8-16); Aspartate Amino Transferase 17 U/L (15-37); Bilirubin,Total 0.3 mg/dL (0.00-1.00); Blood Urea Nitrogen 20 mg/dL (7-18); Calcium 8.5 mg/dL (8.5-10.1); Carbon Dioxide 25 mmol/L (21-32); Chloride 106 mmol/L (98-108); Estimated CRCL calculation 55 ml/min; Estimated Glomerular Filt Rate > 60; Glucose 140 mg/dL (70-99); Magnesium 1.7 mg/dL (1.8-2.4); Osmolality Calculated 300 mOsm/kg (285-295); Phosphorus 2.9 mg/dL (2.6-4.7); Sodium 143 mmol/L (136-145); Total Protein 6.4 g/dL (6.4-8.2)
[2020-12-23 00:38] LABS: Ethanol < 3 mg/dL (0-6)
[2020-12-23 01:00] LABS: Add Urine Microscopic? NO; Appearance Urine Clear (Clear); Bilirubin Urine Negative (Negative); Blood Urine Negative (Negative); Color Urine Light Yellow (Yellow); Glucose Urine UA Negative (Negative); Ketones Urine Negative (Negative); Leukocyte Esterase Ur Negative (Negative); Nitrate Urine Negative (Negative); Protein Urine Negative (Negative); Specific Grav Ur >= 1.030 (1.010-1.020); Urobilinogen Urine 0.2 mg/dL (0.2-1.0); pH Urine 5.5 (5.0-8.0)
[2020-12-23] MEDS: DEXAMETHASONE SOD PHOS INJ 4 MG/ML VIAL 8 MG IV PUSH ×2 (01:05→07:05)
[2020-12-23] MEDS: LORazepam INJ (*CRX) 2 MG/ML VIAL 1 MG IV PUSH (01:05)
[2020-12-23] MEDS: DEXTROSE 5%/0.9% SOD CHL 1,000 ML 100 ML IV CONT ×2 (01:05)
[2020-12-23 01:15] LABS: Amphetamine Screen Urine Positive (Negative); Barbiturate Screen Urine Negative (Negative); Benzodiazepines Screen Urine Negative (Negative); Cannabinoid Screen Urine Negative (Negative); Cocaine Screen Urine Negative (Negative); Methadone Screen Urine Negative (Negative); Opiate Screen Urine Negative (Negative); Phencyclidine Screen Urine Negative (Negative)
[2020-12-23] MEDS: MAGNESIUM SULF 2 GM/WATER 50ML 2 GM/50 ML BAG IVPB (01:25)
--- NOTE | 2020-12-23 01:27 | PC.NURSE ---
Pt is currently sleeping p having 2nd seizure episode in this ER. Pts. sister and POA is at bedside. Options discussed c ERP Dr Ortiz and LONNIE reports that decisions were made for pt to be hospice if and when the time came. LONNIE states she wasn't wanting extenuating life circumstances and wishes to go home to be c family. ERP discussed option of admitting for comfort purposes and having hospice set up tomorrow if possible.
[2020-12-23 02:25] LABS: Glucose Point of Care 280 mg/dl (65-105)
--- NOTE | 2020-12-23 02:29 | PC.NURSE ---
Pts sister/POA at bedside, states she and her sister are adament about taking her home to live out her time at home c her family. Pt is currently unresponsive, ERP discussed options c pts sister/POA. Neuro status of pt is unresponsive at this time since her last seizure and sedated c Ativan. VSS at this time. Fluids stopped per order of ERP. Will continue to observe pt until other arrangement for home care can be made.
--- NOTE | 2020-12-23 05:30 | PC.NURSE ---
Pts son, Sergio calls wanting to check on hid mother. Spoke c pts sister and she spoke to son. Son states to this RN and ERP that his aunt is NOT the POA and was unaware of anyone being in that role. ERP requests POA paperwork be brought to ER MANDA. Spoke to sister in room who states the paperwork is at home and she will have to get it. Requested to bring now so we have official paperwork.
--- NOTE | 2020-12-23 06:00 | PC.NURSE ---
Son, Sergio, here to see his mother, brought to room and sister left. Son now states this pts. mother (his grandmother) has POA paperwork. Again requested someone needs to bring paperwork so decisions can be made. Awaiting pts. mother to come to ER. Pt continues to sleep and is only arousable to light touch and name. VSS, mon. shows SR.
--- NOTE | 2020-12-23 06:46 | PC.NURSE ---
Pts parents are here at this time, pts mother Ginny Peraza is HCPOA and states all her records are at [facility] which is where her chemo specialists are all located. Paperwork and HC POA paperwork located at [facility]. Paperwork signed for release of information.
--- NOTE | 2020-12-23 07:01 | PC.NURSE ---
Call placed to Dr Armando exchange at [facility] requests to speak c Dr Armando, pts. oncologist. Info given and will await call back from Dr Armando.
--- NOTE | 2020-12-23 07:12 | PC.NURSE ---
Spoke c pts mother at bedside, awaiting call back from Dr Armando. Pts VSS and mon continues to show SR, pt is only responsive to some light touch and verbal stimulation, otherwise nonverbal and unresponsive. Report given to JUAN Bates
--- NOTE | 2020-12-23 07:28 | PC.NURSE ---
Pt now alert, denies any pain. pt squeezes with left hand when asked. unable to on right hand. asked pt to smile, pt attempted to smile. family at bedside.
--- NOTE | 2020-12-23 07:37 | PC.NURSE ---
dr chen speaking with dr rainey
--- NOTE | 2020-12-23 07:48 | PC.NURSE ---
Dr Ortiz speaking with pts family.
--- NOTE | 2020-12-23 08:04 | PC.NURSE ---
Care coordination contacted about speaking with pt and pts family about options for further care.
--- NOTE | 2020-12-23 08:06 | PC.NURSE ---
family updated, no questions or concerns at this time.
--- NOTE | 2020-12-23 08:13 | PC.NURSE ---
pt requesting food. pt given jello, tolerating well.
--- NOTE | 2020-12-23 08:51 | PC.NURSE ---
pt offered admission, pt requesting hospice care. pt has some movement in right leg, but no movement to right arm. awaiting care coordination to speak with pt and family.
[2020-12-23] MEDS: POTASSIUM CHLORIDE 20 MEQ TABLET 40 MEQ PO (10:01)
--- NOTE | 2020-12-23 11:08 | PC.NURSE ---
no change in pt status. family at bedside.
--- NOTE | 2020-12-23 12:01 | PC.NURSE ---
call placed to [facility] to obtain poa papers. message left with medical records. family at bedside, lunch tray ordered. no change in pt status.
--- NOTE | 2020-12-23 12:54 | PC.NURSE ---
pt given lunch tray. Stephenson with care coordination trying to find hospice care for pt. PT contacted about [facility].
--- NOTE | 2020-12-23 13:16 | PC.NURSE ---
pt unable to advance right leg when pt here for evaluation.
--- NOTE | 2020-12-23 13:46 | PC.NURSE ---
Pt sitting up on stretcher, finished lunch tray. Family at bedside. no complaints at this time.
--- NOTE | 2020-12-23 14:10 | PC.NURSE ---
Hospice nurse from [facility] here to see pt and speak with family.
--- NOTE | 2020-12-23 15:00 | PC.NURSE ---
[facility] returned messages, release of info faxed to [facility] for poa papers.
--- NOTE | 2020-12-23 15:16 | PC.NURSE ---
pt to be discharged home with sister, [facility] to set up hospice care this evening. pt and family in agreeance with plan of care. pt requests to leave dominguez catheter in place. Mary, hospice nurse, made aware that she will be going home with Dominguez catheter. hospice requests pt be prescribed medication for pain until they can get pt fully admitted to hospice care. edp aware.
--- NOTE | 2020-12-23 18:26 | PCCCNOTE ---
Met with patient in ER room- patient is able to communicate some verbal and writtent. Son Sergio Olmedo at bedside. Patient is able to recall her own name and date of biirth and current year- however when asked her age she in coreectly said she was 57 years old. Also unable to write or tell me whene she is. Patient does indicate that she wants to return home with sister christine Soto for her care. no HPOA document is available and patient's comprehension of difficult concepts is not clear at this time. Mother Anny Peraza is in waiting room and avaiable for consultation. Patient's son Sergio is 22 years of age and defers to his grandmother (Anny Peraza) for decision making. Both Sergio and Digna stae that veena tis not legally to anyone. Anny states has concerns aobut philip's sister Tona to attend to patient 24/7- patient is to be evaluated by PT for mobility and patient requires assistance for personal needs for weakness on one side of her body- per nursing staff. Patient has agreed to Hospice care and she and her mother confirm they do not want patient transferred to another hospital for treatment of her cancer or seizures at this time Sister Tona did arrive and states she would be willing to provide 24/7 care to her sister. Anny- mother states agrees to have patient discharge to home with her sister Tona providing care at this time. [facility]- spoke with Mary who will come to evaluate for hospice Care at home. Referral was faxed to [facility]. Mother asked to privately speak with cc- and shared that she is concerned about Tona taking the 24/7 hour care responsibity seriously. . Mother was provided with phone # of [employer] Adult protective services to call if she has concerns.
== END 2020-12-23 16:00 | disposition hospice, home (50) ==
PROVIDERS: Emergency Provider Emergency Medicine; PCP Nurse Practitioner
DX: C34.90 Malignant neoplasm of unspecified part of unspecified bronchus or lung (principal); C79.31 Secondary malignant neoplasm of brain; R40.0 Somnolence; R56.9 Unspecified convulsions
CPT/HCPCS: 36415; 70450; 71045; 80053; 80307; 81003; 82948; 83735; 84100; 85025; 96361; 96365; 96375; 96376; 97161; 99285; A9270; J1100; J2060; J3411; J3475; J7042

== ENCOUNTER 2021-02-27 17:57 | Emergency (ER) | payer BC, SELFPAY ==
--- NOTE | 2021-02-27 18:54 | PC.NURSE ---
Pt noted to be arguing with family in waiting room. When brought to room pt refused to get into bed for evaluation and treatment. Pt stated she did not want to be treated. Pt stated she would not wait more than one hour. Explained to pt that is an unrealistic expectation. We were happy to see her and treat her but could not guarantee treatment would be complete in one hour. Pt stated she did not want to be treated. Pt able to answer all orientation questions properly. Pt informed of possibility of decline in status and possibility of for not being treated. Pt verbalized understanding and stated I'm going to anyway. Pt signed AMA form.
== END 2021-02-27 18:55 | disposition left against medical advice (07) ==
PROVIDERS: Emergency Provider Emergency Medicine; PCP Nurse Practitioner
DX: Z04.9 Encounter for examination and observation for unspecified reason (principal); Z53.8 Procedure and treatment not carried out for other reasons
CPT/HCPCS: 99199

== ENCOUNTER 2021-03-15 00:41 | Inpatient (IN) | payer BC, SELFPAY ==
[2021-03-15] VITALS (15 sets, daily range): BP systolic 118–161; BP diastolic 63–107; PULSE 79–123; RESP 16–20; TEMP 36.1–36.6; O2SAT 92–100; BMI 22.8
--- NOTE | ~2021-03-15 | CT_ITS ---
EXAMINATION: CT brain wo con EXAM DATE: 03/15/2021 13:00 INDICATION: Obtunded, Dx Overdose. Slurred speech. TECHNIQUE: Spiral CT of the head was performed without contrast. Axial, coronal and sagittal images were reviewed. The dose-length product (DLP) for this examination was 1210.67 mGy-cm. The exposure was tailored according to patient size, and iterative reconstruction (ASIR) was used as additional do se reduction technique. Comparison is made to prior examination from 12/22/2020, 08/15/2019. FINDINGS: There is left frontal lobe mass, difficult to measure or visualize size of this due to joselyn on, but certainly interval increase in size compared to last year. Also interval increase in size of the previously seen left parietal lobe mass. Probably metastatic disease. Again there is hyperdensity within the left frontal lobe mass not significantly changed, therefore probably dystrophic calcifica tion. There is severe associated vasogenic edema with subfalcine herniation up to about 17 mm (was about 13 mm of herniation on 12/22/2020. The left lateral ventricle is now completely effaced, and the right la teral ventricle has developed dilation. This could be from mass effect in the cerebral aqueduct due t o some amount of uncal herniation which is also identified. No extra-axial collections. IMPRESSION: Increase in size of left frontal lobe and left parietal lobe masses, increase in severe e som and subfalcine herniation, and also development of left uncal transtentorial herniation suspecte d to be causing cerebral aqueduct stenosis, obstructive hydrocephalus of dilated right lateral ventri sonny. Left lateral ventricle completely effaced from edema. No acute hemorrhage suspected. I discussed these findings, suspect obstructive hydrocephalus with BRIEN Packer at 03/15/20 21 13:57 CDT. Reviewed, dictated and finalized at location A. IMPRESSION: Increase in size of left frontal lobe and left parietal lobe masses , increase in severe edema and subfalcine herniation, and also development of l eft uncal transtentorial herniation suspected to be causing cerebral aqueduct s tenosis, obstructive hydrocephalus of dilated right lateral ventricle. Left lat eral ventricle completely effaced from edema. No acute hemorrhage suspected. I discussed these findings, suspect obstructive hydrocephalus with BRIEN Lambert at 03/15/2021 13:57 CDT.
--- NOTE | ~2021-03-15 | XR_ITS ---
EXAMINATION: XR chest 1V portable EXAM DATE: 03/15/2021 11:39 INDICATION: Respiratory abnormality. TECHNIQUE: Portable AP frontal chest x-ray was obtained. Comparison is made to prior examination from 12/23/2020. FINDINGS: CT injectable portacatheter. No confluent consolidation, pneumothorax or pleural effusion s uspected. Cardiomediastinal silhouette is normal. There are no osseous abnormalities identified. IMPRESSION: No acute cardiopulmonary findings. Reviewed, dictated and finalized at location A.
--- NOTE | 2021-03-15 01:04 | ECG_ITS ---
Measurements Intervals [place] Rate: 87 P: 53 NE: 145 QRS: 1 QRSD: 105 T: 48 QT: 352 QTc: 424 Interpretive Statements SINUS RHYTHM WITH MARKED SINUS ARRHYTHMIA BASELINE ARTIFACT- I, II, III, AVR, AVL, AVF, V1-V6 NORMAL ECG Electronically Signed On 03-16-2021 7:50:56 CDT by Cesar Downs D.O.
[2021-03-15] MEDS: SODIUM CHLORIDE 0.9% IV 1,000 ML 999 ML IV CONT (01:25)
[2021-03-15 01:30] LABS: Basophils Absolute Auto 0.07 K/mm3 (0.00-0.10); Basophils Percent Auto 0.6 % (0.0-1.0); Eosinophils Absolute Auto 0.04 K/mm3 (0.02-0.50); Eosinophils Percent Auto 0.3 % (1.0-6.0); Hematocrit 42.9 % (35.0-49.0); Hemoglobin 13.8 g/dL (12.0-15.0); Immature Granulocyte Absolute 0.11 K/mm3 (0.00-0.00); Immature Granulocyte Percent A 0.9 % (0.0-0.0); Lymphocytes Absolute Auto 1.52 K/mm3 (1.10-4.50); Mean Corpuscular HGB Conc 32.2 g/dL (32.0-36.0); Mean Corpuscular Hemoglobin 29.9 pg (27.0-31.0); Mean Corpuscular Volume 93.1 fL (78.0-102.0); Mean Platelet Volume 9.3 fl (9.2-11.8); Monocytes Percent Auto 10.3 % (2.0-11.0); Neutrophils Absolute Auto 8.8 K/mm3 (1.7-7.2); Neutrophils Percent Auto 74.9 % (50.0-70.0); Platelet Count Result 392 K/mm3 (150-420); Red Blood Count 4.61 M/mm3 (4.20-5.40); Red Cell Distribution Width 14.4 % (11.6-14.4); White Blood Count 11.7 K/mm3 (4.8-10.8)
[2021-03-15 01:48] LABS: Lactic Acid Reflex 2.9 mmol/L (0.4-2.0)
[2021-03-15 01:55] LABS: Amphetamine Screen Urine Positive (Negative); Barbiturate Screen Urine Negative (Negative); Benzodiazepines Screen Urine Negative (Negative); Cannabinoid Screen Urine Negative (Negative); Cocaine Screen Urine Negative (Negative); Methadone Screen Urine Negative (Negative); Opiate Screen Urine Positive (Negative); Phencyclidine Screen Urine Negative (Negative)
[2021-03-15 01:58] LABS: Alanine Aminotransferase 42 U/L (14-59); Albumin Level 3.3 g/dL (3.4-5.0); Alkaline Phosphatase 146 U/L (46-116); Anion Gap 13 mmol/L (8-16); Aspartate Amino Transferase 13 U/L (15-37); Bilirubin,Total 0.6 mg/dL (0.00-1.00); Blood Urea Nitrogen 28 mg/dL (7-18); Carbon Dioxide 26 mmol/L (21-32); Chloride 100 mmol/L (98-108); Estimated Glomerular Filt Rate > 60; Glucose 218 mg/dL (70-99); Magnesium 1.9 mg/dL (1.8-2.4); Osmolality Calculated 300 mOsm/kg (285-295); Potassium 3.7 mmol/L (3.5-5.1); Sodium 139 mmol/L (136-145); Total Protein 7.6 g/dL (6.4-8.2)
[2021-03-15 02:25] LABS: SARS-CoV-2 RNA PCR Negative (Negative)
--- NOTE | 2021-03-15 02:31 | ED.OVERDOSE ---
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 The patient was unresponsive and EMS at that time gave the patient Narcan and currently the patient is more alert, with history of metastases to the brain the patient is has problems with her speech, the patient is currently not having any chest pain or shortness of breath no fever chills. 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 History of completed stroke Lung cancer metastatic to brain Surgical History Surgical History History of lobectomy of lung Family History Family History Mother Family history non-contributory Social History Social History Smoking status: Current every day smoker Gender identity (if verbalized by the patient): Female Exam Const: General: no acute distress Orientation/consciousness: patient oriented x3 HENMT: Head: normal to inspection Eyes: Conjunctivae: conjunctivae normal Pupils: Equal, round and reactive pupils present Neck: Neck: normal visual inspection, no lymphadenopathy and no meningeal signs Chest: Chest palpation & inspection: normal inspection of the chest Resp: Effort & Inspection: normal respiratory effort Auscultation: clear to auscultation bilaterally Cardio: Rate: regular rate and tachycardic : General: Yes no CVA tenderness Urinary Catheter: Urinary Catheter: patent and draining Back/Spine/Pelvis: Back: no CVA tenderness Skin: General skin exam: normal color Rashes: no rashes Neuro: General: patient oriented x3, moves all extremities, no meningeal signs and no focal motor deficits Extrem: General: normal to inspection Psych: Mental Status: mental status grossly normal Course Course Emergency Course: Labs reviewed with patient and family and will admit the patient for observation, patient more alert after receiving Narcan but still having little ataxia and weakness. Disposition admission to start hospital Condition guarded Diagnosis unintentional overdose Vital Signs Vital signs: Vital Signs Temperature 36.1 C L 03/15/21 00:45 Pulse Rate 122 H 03/15/21 00:45 Respiratory Rate 20 03/15/21 00:45 Blood Pressure 118/100 H 03/15/21 00:45 Pulse Oximetry 92 03/15/21 00:45 Temperature 36.1 C L 03/15/21 00:45 Pulse Rate 107 H 03/15/21 02:15 Respiratory Rate 18 03/15/21 02:15 Blood Pressure 130/63 03/15/21 02:15 Pulse Oximetry 92 03/15/21 00:45 MDM - Overdose Lab Data Result diagrams: 03/15/21 01:23 03/15/21 01:23 Labs: Lab Results 03/15/21 03/15/21 03/15/21 Range/Units 01:23 01:23 01:23 WBC 11.7 H (4.8-10.8) K/mm3 RBC 4.61 (4.20-5.40) M/mm3 Hgb 13.8 (12.0-15.0) g/dL Hct 42.9 (35.0-49.0) % MCV 93.1 (78.0-102.0) fL MCH 29.9 (27.0-31.0) pg MCHC 32.2 (32.0-36.0) g/dL RDW 14.4 (11.6-14.4) % Plt Count 392 (150-420) K/mm3 MPV 9.3 (9.2-11.8) fl Immature Gran % (Auto)
[2021-03-15] MEDS: SODIUM CHLORIDE 0.9% IV 1,000 ML 100 ML IV CONT ×2 (03:30→18:42)
--- NOTE | 2021-03-15 04:18 | ADMGEN ---
This patient, Carmen Ashley, was admitted to 2nd Floor Room 206-1. Patient/family oriented to hospital policies and general routines including ID bracelet, bed and alarms, visiting hours, pain management, procedures, bathroom and other care routines, personal items, smoking policy, room service/diet, and visiting hours. patient arrived around 0315, unresponsive, nonverbal, drowsy, open eyes to voice. vitals stable, ivf's infusing at 100ml/hr, dominguez catheter draining clear jose f urine. Information on how to activate the Rapid Response Team has been discussed. Patient/Family are encouraged to report perceived risks to care and to ask questions if they do not understand what they are told or what they should do.
[2021-03-15 04:27] LABS: Reflex Lactic Acid Yes or No Add Lactic
[2021-03-15 07:09] LABS: Basophils Absolute Auto 0.03 K/mm3 (0.00-0.10); Basophils Percent Auto 0.3 % (0.0-1.0); Eosinophils Absolute Auto 0.04 K/mm3 (0.02-0.50); Eosinophils Percent Auto 0.5 % (1.0-6.0); Hematocrit 39.5 % (35.0-49.0); Immature Granulocyte Percent A 1.1 % (0.0-0.0); Lymphocytes Absolute Auto 1.06 K/mm3 (1.10-4.50); Lymphocytes Percent Auto 12.1 % (18.0-42.0); Mean Corpuscular HGB Conc 32.9 g/dL (32.0-36.0); Mean Corpuscular Hemoglobin 30.4 pg (27.0-31.0); Mean Corpuscular Volume 92.3 fL (78.0-102.0); Mean Platelet Volume 9.3 fl (9.2-11.8); Monocytes Absolute Auto 0.85 K/mm3 (0.10-0.90); Monocytes Percent Auto 9.7 % (2.0-11.0); Neutrophils Absolute Auto 6.7 K/mm3 (1.7-7.2); Neutrophils Percent Auto 76.3 % (50.0-70.0); Platelet Count Result 364 K/mm3 (150-420); Red Blood Count 4.28 M/mm3 (4.20-5.40); Red Cell Distribution Width 14.3 % (11.6-14.4); White Blood Count 8.8 K/mm3 (4.8-10.8)
[2021-03-15 07:28] LABS: Alanine Aminotransferase 37 U/L (14-59); Albumin Level 2.9 g/dL (3.4-5.0); Alkaline Phosphatase 125 U/L (46-116); Anion Gap 13 mmol/L (8-16); Aspartate Amino Transferase 11 U/L (15-37); Bilirubin,Total 0.5 mg/dL (0.00-1.00); Blood Urea Nitrogen 22 mg/dL (7-18); Calcium 8.2 mg/dL (8.5-10.1); Carbon Dioxide 24 mmol/L (21-32); Chloride 104 mmol/L (98-108); Estimated CRCL calculation 63 ml/min; Estimated Glomerular Filt Rate > 60; Glucose 176 mg/dL (70-99); Osmolality Calculated 299 mOsm/kg (285-295); Potassium 3.6 mmol/L (3.5-5.1); Sodium 141 mmol/L (136-145); Total Protein 6.7 g/dL (6.4-8.2)
[2021-03-15] MEDS: ENOXAPARIN 30 MG/0.3 ML SYRINGE SUB-Q ×2 (08:42→20:42)
[2021-03-15] MEDS: MUPIROCIN 2% OINT 22 GM TUBE 1 APPLIC (10:54)
[2021-03-15] MEDS: NALOXONE HCL 0.4 MG/ML VIAL IV PUSH ×2 (11:00→13:16)
[2021-03-15] MEDS: MUPIROCIN 2% OINT 22 GM TUBE 1 APPLIC TOPICAL ×2 (13:17→16:27)
--- NOTE | 2021-03-15 13:17 | PC.NURSE ---
Call received from eduard Mcwilliamsscalehouse attendant for [facility]. She states the hospitalist and trauma director at her facility have declined transfer. They feel pt needs higher level of car due to a midline shift on her head ct. They recommend a facility with neurosurgery. Information given to KAJAL Lala.
--- NOTE | 2021-03-15 15:24 | PM.IMHP ---
H&P: HPI History of Present Illness Date/Time: 03/15/21 15:24 Pt is a very poor historian d/t drug overdose and now still obtunded as she is coming off of her high . Also, It was found in imaging the following: IMPRESSION: Increase in size of left frontal lobe and left parietal lobe masses, increase in severe edema and subfalcine herniation, and also development of left uncal transtentorial herniation suspected to be causing cerebral aqueduct stenosis, obstructive hydrocephalus of dilated right lateral ventricle. Left lateral ventricle completely effaced from edema. No acute hemorrhage suspected. I have been looking for a neurologist to transfer this Pt to for the above. I have communicated to the Mother who is also the POA the attempts to various facilities. Pt had a Lung Lobectomy in 2019. She eventually had mets to the brain from the lung CA. She was placed on Hospice Care for her Lung CA / Mets to the Brain. She was fired by Hospice for consuming illegal drugs while in Hospice Care. Pt came to the hospital for drug overdose. She was given Narcan in the ambulance and again in the ER. She was given more Narcan after admitted followed by another Narcan with a Narcan Gtts. Pt is more alert but not following many commands. She will look in the direction of voice, attempt to say her name, attempt to stick out her tongue, but this is about it as far as following commands. Narcan drip to be titrated for respiratory status such as hypoventilation, tachycardia, decreased LOC. 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 History of completed stroke Lower back pain (11/08/14) Lung cancer metastatic to brain <BRIEN Packer - Last Filed: 03/15/21 16:01> Surgical History Surgical History: Surgical History History of lobectomy of lung <BRIEN Packer - Last Filed: 03/15/21 16:01> Family History Family History: Family History Mother Family history non-contributory <BRIEN Packer - Last Filed: 03/15/21 16:01> Social History Social History: Social History Smoking status: Unknown if ever smoked Alcohol intake: unknown Substance use: current Substance use type: opiates and methamphetamine Gender identity (if verbalized by the patient): Female Spiritual care concerns: No <BRIEN Packer - Last Filed: 03/15/21 16:01> Meds Home Medications and Allergies Home medications: Home Medications Medication Instructions Recorded Confirmed Type Unable to Obtain Home Medications 03/15/21 03/15/21 History <BRIEN Packer - Last Filed: 03/15/21 16:01> Allergies/Adverse reactions: Allergies Allergy/AdvReac Type Severity Reaction Status Date / Time No Known Allergies Allergy Verified 09/12/20 15:23 <BRIEN Packer - Last Filed: 03/15/21 16:01> Vital Signs Vital Signs - 24 hr 03/15/21 00:45 03/15/21 02:15 03/15/21 02:41 Temperature 97.0 F L 97.8 F Pulse Rate 122 H 107 H 80 Respiratory Rate 20 18 18 Blood Pressure 118/100 H 130/63 146/71 H Pulse Oximetry 92 03/15/21 03:26 03/15/21 03:43 03/15/21 04:24 Temperature 97.3 F L 97.3 F L 97.3 F L Pulse Rate 81 Respiratory Rate 18 Blood Pressure 137/66 Pulse Oximetry 98 03/15/21 07:55
[2021-03-15] MEDS: cloNIDine HCL 0.1 MG TABLET PO (16:33)
--- NOTE | 2021-03-15 20:01 | PC.NURSE ---
dr. bose aware of bp remaining 147/104. moving leg up and down l arm pulling at sheets and gown. still only at times opens eyes. no verbal. new orders
--- NOTE | 2021-03-15 20:08 | PC.NURSE ---
late entry......3817 dr. bose aware of her hr 120-130's st on tele. bp 158/107 and prn clonidine given sl @1630. bp still 147/104 and hr 110-120's. new orders to stop Narcan gtt. cont to use prn Narcan ivp if she is unresponsiveness.
[2021-03-15] MEDS: METOPROLOL TARTRATE INJ 5 MG/5 ML VIAL 2.5 MG IV PUSH (20:47)
[2021-03-16] VITALS (8 sets, daily range): BP systolic 130–177; BP diastolic 88–110; PULSE 85–137; RESP 14–22; TEMP 36.2–36.8; O2SAT 94–99
--- NOTE | 2021-03-16 02:22 | PC.NURSE ---
Call from [facility] for update on patient. No bed available at this time. [facility]
[2021-03-16] MEDS: SODIUM CHLORIDE 0.9% IV 1,000 ML 100 ML IV CONT (04:03)
[2021-03-16] MEDS: cloNIDine HCL 0.1 MG TABLET PO ×2 (04:10→16:54)
[2021-03-16 05:26] LABS: Hematocrit 38.3 % (35.0-49.0); Hemoglobin 12.7 g/dL (12.0-15.0); Mean Corpuscular HGB Conc 33.2 g/dL (32.0-36.0); Mean Corpuscular Hemoglobin 29.7 pg (27.0-31.0); Mean Corpuscular Volume 89.5 fL (78.0-102.0); Mean Platelet Volume 9.3 fl (9.2-11.8); Platelet Count Result 374 K/mm3 (150-420); Red Blood Count 4.28 M/mm3 (4.20-5.40); Red Cell Distribution Width 13.8 % (11.6-14.4); White Blood Count 11.9 K/mm3 (4.8-10.8)
[2021-03-16 05:31] LABS: Anion Gap 17 mmol/L (8-16); Blood Urea Nitrogen 12 mg/dL (7-18); Calcium 8.1 mg/dL (8.5-10.1); Carbon Dioxide 21 mmol/L (21-32); Chloride 100 mmol/L (98-108); Estimated CRCL calculation 74 ml/min; Estimated Glomerular Filt Rate > 60; Glucose 186 mg/dL (70-99); Osmolality Calculated 290 mOsm/kg (285-295); Potassium 2.9 mmol/L (3.5-5.1); Sodium 138 mmol/L (136-145)
[2021-03-16] MEDS: ENOXAPARIN 30 MG/0.3 ML SYRINGE SUB-Q (09:12)
[2021-03-16] MEDS: KCL 20 MEQ/SW 100 ML 100 ML 50 MEQ IVPB ×2 (09:12→11:15)
[2021-03-16] MEDS: MUPIROCIN 2% OINT 22 GM TUBE 1 APPLIC TOPICAL ×3 (09:13→16:55)
[2021-03-16] MEDS: SCOPOLAMINE 1.5 MG PATCH TRANSDERM (11:30)
--- NOTE | 2021-03-16 14:27 | PM.IMPN ---
Progress Note: A&P Assessment and Plan (1) Drug overdose: Qualifiers: Encounter type: initial encounter Injury intent: accidental or unintentional Qualified Code(s): T50.901A - Poisoning by unspecified drugs, medicaments and biological substances, accidental (unintentional), initial encounter Code(s): T50.901A - Poisoning by unspecified drugs, medicaments and biological substances, accidental (unintentional), initial encounter Status: Acute Assessment and Plan: Currently Pt is on Narcan drip with Clonidine PRN for Tachycardia, Hypertension, additional 0.4 Narcan for decreased LOC, inability to follow simple commands. 03/16/2021 Pt's condition most likely due the following reason: IMPRESSION: Increase in size of left frontal lobe and left parietal lobe masses, increase in severe edema and subfalcine herniation, and also development of left uncal transtentorial herniation suspected to be causing cerebral aqueduct stenosis, obstructive hydrocephalus of dilated right lateral ventricle. Left lateral ventricle completely effaced from edema. No acute hemorrhage suspected. (2) Lung cancer metastatic to brain: Code(s): C34.90 - Malignant neoplasm of unspecified part of unspecified bronchus or lung; C79.31 - Secondary malignant neoplasm of brain Status: Acute Assessment and Plan: Attempted to have Pt transferred for Neurosurgical intervention for the following radiological findings by Dr. Covarrubias: IMPRESSION: Increase in size of left frontal lobe and left parietal lobe masses, increase in severe edema and subfalcine herniation, and also development of left uncal transtentorial herniation suspected to be causing cerebral aqueduct stenosis, obstructive hydrocephalus of dilated right lateral ventricle. Left lateral ventricle completely effaced from edema. No acute hemorrhage suspected. I was unable to get Pt transferred after calling [facility], [facility], [facility], [facility], however she is on a wait list with [facility] where she did have her Lung Lobectomy done and had her Oncologist and Radiology/Oncology treat her. 03/16/2021 Pt is now DNR with end of life comfort care with NH placement pending and Hospice Care contacted. Subjective Date/time seen: 03/16/21 14:27 Carmen is responsive to painful stimuli only. Family in room at bedside. Pt does not respond to her 25 year old son nor her mother or father. Pt was made a DNR today and will be put on Hospice Care. Yesterday many attempts were made to transfer the Pt to a hospital with neurosurgery but all that I spoke with were full and she was on a wait list at [facility]. The following facilities were reached out to for transfer: [facility], [facility], [facility], [facility], [facility], [place] and [facility] in [place]. Treatment at this time is comfort measures. Care Coordination is setting up NH and Hospice Care. Review of Systems Review of Systems: ROS unobtainable: Yes unobtainable due to medical condition Exam Const: General: other (Responds to painful stimuli only. ) Resp: Effort & Inspection: normal respiratory effort Auscultation: no crackles, no rales and no rhonchi Cardio: Rate: regular rate and tachycardic Objective Data Vital Signs Vital Signs: Vital Signs - 24 hr 03/15/21 16:00 03/15/21 16:56 03/15/21 20:00 Temperature 97.2 F L 97.6 F Pulse Rate 87 86 84 Respiratory Rate 20 16 Blood Pressure 158/107 H 152/95 H 147/103 H Pulse Oximetry 100 99 03/15/21 20:47 03/16/21 00:00 03/16/21 04:00 Temperature 98.2 F 97.6 F Pulse Rate 123 H 129 H 126 H Respiratory Rate 16 14 Blood Pressure 141/91 H 177/98 H Pulse Oximetry 99 98 03/16/21 08:00 03/16/21 12:00 Temperature 97.9 F 97.7 F Pulse Rate 89 85 Respiratory Rate 20 20 Blood Pressure 130/88 155/93 H Pulse Oximetry 96 97 Intake/Output Intake/Output: Intake & Output 03/13/21 03/14/21 03/15/21 03/16/21 23:59 23:59 23:59 23:59 Intake Total 2079.6 2046.667 Output Total 775 950 Balance 1304.6 1096.667
[2021-03-16] MEDS: cloNIDine 0.1 MG/24 HR PATCH 1 PATCH TRANSDERM (20:00)
--- NOTE | 2021-03-16 20:28 | PC.NURSE ---
Patient pupils are sluggish but reactive and equal, patient is only responsive to painful stimuli, face is symmetric.
--- NOTE | 2021-03-16 22:09 | PC.NURSE ---
Pupils sluggish but reactive, left appears slightly larger than the right, is only responsive to painful stimuli.
[2021-03-17] VITALS: BP 161/94; PULSE 126; RESP 18; TEMP 35.7; O2SAT 94
--- NOTE | 2021-03-17 | PC.NURSE ---
Pupils are sluggish, right slightly smaller than the left, is responsive to tactile stimuli.
--- NOTE | 2021-03-17 02:34 | PC.NURSE ---
Pupils sluggish, right is slightly smaller than left, responds to painful stimuli, face symmetric, non verbal.
[2021-03-17 04:00] VITALS: BP 161/103; PULSE 140; RESP 22; TEMP 35.7; O2SAT 90
--- NOTE | 2021-03-17 04:27 | PC.NURSE ---
Pupils sluggish, left larger than right, Responsive to tactile stimulation, non verbal.
[2021-03-17 05:25] VITALS: O2SAT 88
--- NOTE | 2021-03-17 05:50 | PC.NURSE ---
Patient shows little response, is startingn to mottle around the knee and thigh area.
[2021-03-17 08:00] VITALS: BP 125/90; PULSE 146; PULSE 155; RESP 34; TEMP 36.2; O2SAT 90
[2021-03-17] MEDS: MORPHINE SULFATE (*CRX) 2 MG/ML INJ IV PUSH ×5 (08:48→18:21)
[2021-03-17] MEDS: LORazepam INJ (*CRX) 2 MG/ML VIAL IV PUSH ×3 (08:49→17:14)
[2021-03-17] MEDS: MUPIROCIN 2% OINT 22 GM TUBE 1 APPLIC TOPICAL ×2 (08:49→16:11)
--- NOTE | 2021-03-17 08:58 | PC.NURSE ---
Patient repositioned, oxygen titrated to 10L per simple mask, sat 84%. Heart rate 165. Patient unresponsive, exhibits decorticate posturing when moved or turned.
--- NOTE | 2021-03-17 10:15 | PC.NURSE ---
Patient repositioned, family at bedside.
--- NOTE | 2021-03-17 12:58 | PC.NURSE ---
Patient's respiratory rate 26, heart rate 157. Given IVP morphine and Ativan for comfort.
--- NOTE | 2021-03-17 13:04 | WPDPN ---
Progress Note: A&P Assessment and Plan (1) Drug overdose: Qualifiers: Encounter type: initial encounter Injury intent: accidental or unintentional Qualified Code(s): T50.901A - Poisoning by unspecified drugs, medicaments and biological substances, accidental (unintentional), initial encounter Code(s): T50.901A - Poisoning by unspecified drugs, medicaments and biological substances, accidental (unintentional), initial encounter Status: Acute Assessment and Plan: Currently Pt is on Narcan drip with Clonidine PRN for Tachycardia, Hypertension, additional 0.4 Narcan for decreased LOC, inability to follow simple commands. 03/16/2021 Pt's condition most likely due the following reason: IMPRESSION: Increase in size of left frontal lobe and left parietal lobe masses, increase in severe edema and subfalcine herniation, and also development of left uncal transtentorial herniation suspected to be causing cerebral aqueduct stenosis, obstructive hydrocephalus of dilated right lateral ventricle. Left lateral ventricle completely effaced from edema. No acute hemorrhage suspected. Patient will be treated as a hospice patient (2) Lung cancer metastatic to brain: Code(s): C34.90 - Malignant neoplasm of unspecified part of unspecified bronchus or lung; C79.31 - Secondary malignant neoplasm of brain Status: Acute Assessment and Plan: Attempted to have Pt transferred for Neurosurgical intervention for the following radiological findings by Dr. Covarrubias: IMPRESSION: Increase in size of left frontal lobe and left parietal lobe masses, increase in severe edema and subfalcine herniation, and also development of left uncal transtentorial herniation suspected to be causing cerebral aqueduct stenosis, obstructive hydrocephalus of dilated right lateral ventricle. Left lateral ventricle completely effaced from edema. No acute hemorrhage suspected. I was unable to get Pt transferred after calling [facility], [facility], [facility], [facility], however she is on a wait list with [facility] where she did have her Lung Lobectomy done and had her Oncologist and Radiology/Oncology treat her. 03/16/2021 Pt is now DNR with end of life comfort care with NH placement pending and Hospice Care contacted. Patient will be treated as a hospice patient Subjective Date/time seen: 03/17/21 13:04 patient is unresponsive and actively dying, she is comfortable at this time with family at bedside. She is currently being treated as a hospice patient until she can be accepted into hospice Review of Systems Review of Systems: ROS unobtainable: Yes unobtainable due to medical condition (Hospice patient) Exam Narrative: GENERAL: Nonresponsive HEAD: normocephalic, atraumatic. . EARS: External ears normal, auditory canals clear and without drainage, TMs normal without perforation. Hearing grossly intact. NOSE: External nose normal with no obvious nasal discharge, nares without redness, no rhinorrhea. THROAT: Mucous membranes moist, posterior pharynx clear. NECK: Neck supple, non-tender without lymphadenopathy, masses or thyromegaly. CARDIOVASCULAR: Tachycardia RESPIRATORY: Tachypnea, labored breathing with hypoxia GASTROINTESTINAL: Abdomen soft, non-tender, nondistended. Hypoactive breath sounds SKIN: mottled skin. NEURO: Unresponsive Objective Data Vital Signs Vital Signs: Vital Signs - 24 hr 03/16/21 16:00 03/16/21 18:15 03/16/21 20:00 Temperature 98.3 F 97.2 F L Pulse Rate 136 H 136 H 126 H Respiratory Rate 22 H 22 H 20 Blood Pressure 140/100 H 159/110 H 146/101 H Pulse Oximetry 97 97 94 03/16/21 23:59 03/17/21 00:00 03/17/21 04:00 Temperature 96.3 F L 96.3 F L Pulse Rate 126 H 126 H 140 H Respiratory Rate 18 22 H Blood Pressure 161/94 H 161/103 H Pulse Oximetry 94 90 03/17/21 08:00 Temperature 97.1 F L Pulse Rate 146 H Respiratory Rate 34 H Blood Pressure 125/90 Pulse Oximetry 90 Intake/Output Intake/Output: Intake & Output 10
--- NOTE | 2021-03-17 13:37 | PC.NURSE ---
Current vitals- HR 160, RR 26, B/P 74/54, SPO2 97% with O2 at 10L per simple mask
[2021-03-17 20:00] VITALS: BP 90/50; PULSE 149; RESP 30; TEMP 36.1; O2SAT 88
--- NOTE | 2021-03-17 21:49 | PC.NURSE ---
Patient sleeping with simple oxygen mask on. Son is at bedside. Patient appears comfortable. Offered PRN Morphine or Ativan. Son declines at this time, states he will let us know if he'd like her to have something.
[2021-03-17 23:38] VITALS: BP 89/58; PULSE 148; RESP 24; TEMP 36
[2021-03-18 05:26] VITALS: O2SAT 80
[2021-03-18 07:10] VITALS: BP 103/88; PULSE 146; RESP 30; TEMP 36.5; O2SAT 91
[2021-03-18] MEDS: LORazepam INJ (*CRX) 2 MG/ML VIAL IV PUSH ×4 (08:16→21:17)
[2021-03-18] MEDS: MORPHINE SULFATE (*CRX) 2 MG/ML INJ IV PUSH ×2 (08:17→10:35)
[2021-03-18] MEDS: MUPIROCIN 2% OINT 22 GM TUBE 1 APPLIC TOPICAL (09:53)
--- NOTE | 2021-03-18 10:21 | PC.NURSE ---
Patient discharged from Observation status to inpatient status
[2021-03-18] MEDS: MORPHINE SULFATE (*CRX) 2 MG/ML INJ 1 MG IV PUSH (10:33)
[2021-03-18] MEDS: MORPHINE SULFATE (*CRX) 2 MG/ML INJ 3 MG IV PUSH ×6 (12:05→22:01)
--- NOTE | 2021-03-18 14:10 | WPDPN ---
Progress Note: A&P Assessment and Plan (1) Drug overdose: Qualifiers: Encounter type: initial encounter Injury intent: accidental or unintentional Qualified Code(s): T50.901A - Poisoning by unspecified drugs, medicaments and biological substances, accidental (unintentional), initial encounter Code(s): T50.901A - Poisoning by unspecified drugs, medicaments and biological substances, accidental (unintentional), initial encounter Status: Acute Assessment and Plan: Currently Pt is on Narcan drip with Clonidine PRN for Tachycardia, Hypertension, additional 0.4 Narcan for decreased LOC, inability to follow simple commands. 03/16/2021 Pt's condition most likely due the following reason: IMPRESSION: Increase in size of left frontal lobe and left parietal lobe masses, increase in severe edema and subfalcine herniation, and also development of left uncal transtentorial herniation suspected to be causing cerebral aqueduct stenosis, obstructive hydrocephalus of dilated right lateral ventricle. Left lateral ventricle completely effaced from edema. No acute hemorrhage suspected. Patient will be treated as a hospice patient (2) Lung cancer metastatic to brain: Code(s): C34.90 - Malignant neoplasm of unspecified part of unspecified bronchus or lung; C79.31 - Secondary malignant neoplasm of brain Status: Acute Assessment and Plan: Attempted to have Pt transferred for Neurosurgical intervention for the following radiological findings by Dr. Covarrubias: IMPRESSION: Increase in size of left frontal lobe and left parietal lobe masses, increase in severe edema and subfalcine herniation, and also development of left uncal transtentorial herniation suspected to be causing cerebral aqueduct stenosis, obstructive hydrocephalus of dilated right lateral ventricle. Left lateral ventricle completely effaced from edema. No acute hemorrhage suspected. I was unable to get Pt transferred after calling [facility], [facility], [facility], [facility], however she is on a wait list with [facility] where she did have her Lung Lobectomy done and had her Oncologist and Radiology/Oncology treat her. 03/16/2021 Pt is now DNR with end of life comfort care with NH placement pending and Hospice Care contacted. Patient will be treated as a hospice patient Subjective Date/time seen: 03/18/21 14:10 patient condition is unchanged, she is actively dying with family members at bedside. Have implemented recommendations from hospice. Review of Systems Review of Systems: ROS unobtainable: Yes unobtainable due to medical condition (Hospice patient) Exam Narrative: GENERAL: Nonresponsive HEAD: normocephalic, atraumatic. . EARS: External ears normal, auditory canals clear and without drainage, TMs normal without perforation. Hearing grossly intact. NOSE: External nose normal with no obvious nasal discharge, nares without redness, no rhinorrhea. THROAT: Mucous membranes moist, posterior pharynx clear. NECK: Neck supple, non-tender without lymphadenopathy, masses or thyromegaly. CARDIOVASCULAR: Tachycardia RESPIRATORY: Tachypnea, labored breathing with hypoxia GASTROINTESTINAL: Abdomen soft, non-tender, nondistended. Hypoactive breath sounds SKIN: mottled skin. NEURO: Unresponsive Objective Data Vital Signs Vital Signs: Vital Signs - 24 hr 03/17/21 20:00 03/17/21 23:38 03/18/21 07:10 Temperature 96.9 F L 96.8 F L 97.7 F Pulse Rate 149 H 148 H 146 H Respiratory Rate 30 H 24 H 30 H Blood Pressure 90/50 L 89/58 L 103/88 Pulse Oximetry 88 L 91 Intake/Output Intake/Output: Intake & Output 03/15/21 03/16/21 03/17/21 03/18/21 23:59 23:59 23:59 23:59 Intake Total 2079.6 2046.667 0 Output Total 775 1800 350 60 Balance 1304.6 246.667 -350 -60 Meds/Results Medications: Active Medications Generic Name Dose Route Start Last Admin Trade Name Freq PRN Reason Stop Dose Admin Lorazepam 2 mg 03/18/21 13:00 03/18/21 12:05 Lorazepam Inj (*Crx) 2 Mg/Ml
--- NOTE | 2021-03-18 19:24 | PC.NURSE ---
Upon assessment, pt is sleeping, no distress noted, comfort measures being provided. monitor shows S-Tach at rate of149. Son is at pts bedside. Encouraged pts son to call if anything is needed. Continuing to provide pain meds as ordered/scheduled for pts. comfort.
[2021-03-18 20:00] VITALS: PULSE 149; RESP 24; O2SAT 80
[2021-03-19] MEDS: MORPHINE SULFATE (*CRX) 2 MG/ML INJ 3 MG IV PUSH ×4 (00:04→06:00)
[2021-03-19] MEDS: LORazepam INJ (*CRX) 2 MG/ML VIAL IV PUSH ×2 (00:59→05:01)
--- NOTE | 2021-03-19 02:06 | PC.NURSE ---
Son remains at pt side. Pt being turned q2 hr. Gurgling resp. noted and breathing shallow. Mon shows STach c rate of 150's. Comfort measures continue.
--- NOTE | 2021-03-19 04:00 | PC.NURSE ---
Gurgling resp increasing c some deep labored breathing noted. Mon in SVT c rate of 170. Son at bedside and comfort measures continue c pt. Son given explanation and discussion of end of life process. Asked pts. son if he would like for his g-mother to be called to stay, son denies wanting to call anyone at this time. Reassurance and support given.
[2021-03-19 05:45] VITALS: PULSE 167; RESP 22
--- NOTE | 2021-03-19 05:49 | PC.NURSE ---
Pt having gurgling, labored breathing, son requests face mask for comfort, simple mask applied at 7L for pt comfort due to mouth breathing and labored at this time.
--- NOTE | 2021-03-19 06:30 | PC.NURSE ---
Rhythm change noted and pts breathing agonal resp. Family at side. No pulse noted PEA on monitor.
--- NOTE | 2021-03-19 06:36 | PC.NURSE ---
Dr Barron updated on patient's condition with no new orders received.
--- NOTE | 2021-03-19 06:45 | PC.NURSE ---
Dr Ortiz notified of patient's time of @ 6371.
--- NOTE | 2021-03-19 06:48 | PC.NURSE ---
Pts breathing stopped, no pulses noted or breath sounds at this time. Monitor shows Asystole. TOD pronounced 0643. Call placed to Dr Ortiz.
--- NOTE | 2021-03-19 07:15 | PM.DDS ---
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 The patient was unresponsive and EMS at that time gave the patient Narcan . During this hospital stay patient's condition deteriorated and patient was referred to hospice. Patient was placed on comfort measures. At approximately 6:43 on 03/22/2021the patient was pronounced.there is no spontaneous measures, no response to verbal or stimul, no breath sound or pulses present Additional Data Confirmation of as documented by pronouncing clinician: Pupillary Reflex, Palpable Pulses, Response to Stimuli, Heart Tones and Breath Sounds Name of Provider Notified: Dr Ortiz Provider Requests Autopsy: No Family Requests Autopsy: No Date [facility] Notified of : 03/19/21 Time [facility] Notified of : 06:54
--- NOTE | 2021-03-19 07:30 | PM.DS ---
DS: Admitting Diagnosis Discharge Date 03/19/2021 Admitting Diagnosis Overdose, metastatic disease DS: Discharge Diagnosis Discharge Diagnosis (1) Drug overdose: Qualifiers: Encounter type: initial encounter Injury intent: accidental or unintentional Qualified Code(s): T50.901A - Poisoning by unspecified drugs, medicaments and biological substances, accidental (unintentional), initial encounter Code(s): T50.901A - Poisoning by unspecified drugs, medicaments and biological substances, accidental (unintentional), initial encounter Status: Acute Assessment and Plan: Currently Pt is on Narcan drip with Clonidine PRN for Tachycardia, Hypertension, additional 0.4 Narcan for decreased LOC, inability to follow simple commands. 03/16/2021 Pt's condition most likely due the following reason: IMPRESSION: Increase in size of left frontal lobe and left parietal lobe masses, increase in severe edema and subfalcine herniation, and also development of left uncal transtentorial herniation suspected to be causing cerebral aqueduct stenosis, obstructive hydrocephalus of dilated right lateral ventricle. Left lateral ventricle completely effaced from edema. No acute hemorrhage suspected. Patient will be treated as a hospice patient 03/19/2021 patient pronounced at 643 (2) Lung cancer metastatic to brain: Code(s): C34.90 - Malignant neoplasm of unspecified part of unspecified bronchus or lung; C79.31 - Secondary malignant neoplasm of brain Status: Acute Assessment and Plan: Attempted to have Pt transferred for Neurosurgical intervention for the following radiological findings by Dr. Covarrubias: IMPRESSION: Increase in size of left frontal lobe and left parietal lobe masses, increase in severe edema and subfalcine herniation, and also development of left uncal transtentorial herniation suspected to be causing cerebral aqueduct stenosis, obstructive hydrocephalus of dilated right lateral ventricle. Left lateral ventricle completely effaced from edema. No acute hemorrhage suspected. I was unable to get Pt transferred after calling [facility], [facility], [facility], [facility], however she is on a wait list with [facility] where she did have her Lung Lobectomy done and had her Oncologist and Radiology/Oncology treat her. 03/16/2021 Pt is now DNR with end of life comfort care with NH placement pending and Hospice Care contacted. 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 The patient was unresponsive and EMS at that time gave the patient Narcan . During this hospital stay patient's condition deteriorated and patient was referred to hospice. Patient was placed on comfort measures. 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 The patient was unresponsive and EMS at that time gave the patient Narcan . During this hospital stay patient's condition deteriorated and patient was referred to hospice. Patient was placed on comfort measures. At approximately 6:43 on 03/22/2021the patient was pronounced.there is no spontaneous measures, no response to verbal or stimul, no breath sound or pulses present Time Spent with Patient Time attestation: Total time spent providing and/or coordinating discharge services: 30 min Exam Narrative: Not performed patient pronounced at 6:43 Discharge Plan Discharge Attending physician on
--- NOTE | 2021-03-19 09:05 | PC.NURSE ---
Patient has been cleaned up. Catheter, IV site, and Telemetry all discontinued and removed. home has arrived to take possession of body and has taken out of facility. All personal items have been removed and taken with family.
== END 2021-03-19 06:43 | disposition expired | DRG 41 ==
LOC: CHSED 02:35 → CHS2ND 17:52
PROVIDERS: Nurse Practitioner Family; Admitting Provider Emergency Medicine; Emergency Provider Emergency Medicine; PCP Nurse Practitioner; Visit Provider Emergency Medicine
DX: C79.31 Secondary malignant neoplasm of brain (principal); G91.1 Obstructive hydrocephalus; T40.1X1A Poisoning by heroin, accidental (unintentional), initial encounter; L97.819 Non-pressure chronic ulcer of other part of right lower leg with unspecified severity; F32.A Depression, unspecified; Z85.118 Personal history of other malignant neoplasm of bronchus and lung; Z90.2 Acquired absence of lung [part of]; Z86.73 Personal history of transient ischemic attack (TIA), and cerebral infarction without residual deficits; Z51.5 Encounter for palliative care
CPT/HCPCS: 36415; 70450; 71045; 80048; 80053; 80307; 83605; 83735; 84443; 85025; 85027; 87070; 87205; 93005; 96360; 96361; 96365; 96366; 96372; 96374; 96375; 96376; 99285; A9270; C9803; G0378; G0379; J1650; J2060; J2270; J2310; J3480; J7030; J7050; U0003; U0005